=== PATIENT | female | born 1985 | race Caucasian/White ===

== ENCOUNTER 2019-01-11 18:39 | Emergency (ER) | payer BC ==
[2019-01-11] MEDS ORDERED: Lactated Ringers 1000 ML Bag* 1,000 ML IV ONE (21:00)
[2019-01-11 21:12] LABS: Urine Appearance Cloudy; Urine Bilirubin Negative (Negative); Urine Blood Negative (Negative); Urine Color Colorless; Urine Glucose Negative (Negative); Urine Ketones Negative (Negative); Urine Nitrite Negative (Negative); Urine Protein Negative (Negative); Urine Specific Gravity 1.002 (1.010-1.030); Urine Urobilinogen Negative (Negative)
[2019-01-11 21:17] LABS: ABS Basophils 0 10^3/ul (0-0.2); ABS Eosinophils 0.2 10^3/ul (0-0.6); ABS Lymphocytes 3.8 10^3/ul (1.0-4.8); ABS Monocytes 1.2 10^3/ul (0-0.8); ABS Neutrophils 8.7 10^3/ul (1.5-7.7); ABS Nucleated RBC 0 10^3/ul; Eosinophil % 1.5 %; Hematocrit 40 % (35-47); Hemoglobin 13.6 g/dl (12.0-16.0); Lymphocyte % 27.1 %; Mean Corpuscular HGB Conc 34 g/dl (31-36); Mean Corpuscular Hemoglobin 31 pg (27-31); Mean Corpuscular Volume 91 fL (80-97); Mean Platelet Volume 7.7 fL (7.4-10.4); Nucleated Red Blood Cells % 0.1; Platelet Count 314 10^3/ul (150-450); Red Blood Count 4.35 10^6/ul (4.00-5.40); Red Cell Distribution Width 13 % (10.5-15); White Blood Count 14.1 10^3/ul (3.5-10.8)
[2019-01-11 21:33] LABS: Albumin 3.6 g/dL (3.2-5.2); Albumin/Globulin Ratio 1.3 (1-3); BUN/Creatinine Ratio 15.9 (8-20); C Reactive Protein 13.44 mg/L (<8.01); Calcium 9.1 mg/dL (8.6-10.3); EGFR African American 117.8 (>60); EGFR Non-African American 97.4 (>60); Globulin 2.8 g/dL (2-4); Potassium 4.2 mmol/L (3.5-5.0); Total Bilirubin 0.2 mg/dL (0.2-1.0); Total Protein 6.4 g/dL (6.4-8.9)
--- NOTE | 2019-01-11 21:46 | ED ---
Abdominal Pain/Female - HPI Summary HPI Summary: This patient is a 33 year old F presenting to [facility] with a chief complaint of upper abd pain since 14:30. The patient notes that she is 12 weeks . Patient reports that she was diagnosed with a kidney infection with her last . The patient rates the pain 6/10 in severity. Symptoms aggravated by nothing. Symptoms alleviated by nothing. Patient reports nausea and cough. Patient denies urinary symptoms. Patient notes that she had a sinus infection a few weeks ago. - History of Current Complaint Chief Complaint: EDAbdPain Stated Complaint: 12 WEEKS /ABD PAIN Time Seen by Provider: 01/11/19 20:25 Hx Obtained From: Patient Hx Last Menstrual Period: 08/15/14 ?: Yes Onset/Duration: Gradual Onset, Lasting Hours Timing: Constant Severity Initially: Moderate Severity Currently: Moderate Pain Intensity: 6 Pain Scale Used: 0-10 Numeric Location: Discrete At: RUQ, Discrete At: LUQ Radiates: No Aggravating Factor(s): Nothing Alleviating Factor(s): Nothing Associated Signs and Symptoms: Positive: Nausea. Negative: Urinary Symptoms Allergies/Adverse Reactions: Allergies Allergy/AdvReac Type Severity Reaction Status Date / Time No Known Allergies Allergy Verified 02/29/16 07:12 Home Medications: Home Medications Levothyroxine TAB* [Synthroid TAB*] 25 mcg PO DAILY 01/11/19 [History Confirmed 01/11/19] Progesterone SUPP (NF) [Endometrin SUPP (NF)] 100 mg VAGINAL TID 01/11/19 [ History Confirmed 01/11/19] PMH/Surg Hx/FS Hx/Imm Hx Endocrine/Hematology History: Denies: Hx Diabetes, Hx Thyroid Disease Cardiovascular History: Denies: Hx Hypertension Respiratory History: Denies: Hx Asthma, Hx Chronic Obstructive Pulmonary Disease (COPD) GI History: Denies: Hx Ulcer History: Reports: Hx Kidney Infection - stents placed this Musculoskeletal History: Reports: Other Musculoskeletal History - BULGING BACK NECK AREA Sensory History: Reports: Hx Contacts or Glasses - INSTRUCTS GIVEN Denies: Hx Hearing Aid Opthamlomology History: Reports: Hx Contacts or Glasses - INSTRUCTS GIVEN - Surgical History Surgery Procedure, Year, and Place: HPV - LEEP procedure. wisdom teeth extraction Hx Anesthesia Reactions: No Infectious Disease History: No Infectious Disease History: Denies: Hx Clostridium Difficile, Hx Hepatitis, Hx Human Immunodeficiency Virus (HIV), Hx of Known/Suspected MRSA, Hx Shingles, Hx Tuberculosis, Traveled Outside the [place] in Last 30 Days - Family History Known Family History: Negative: Diabetes - Social History Alcohol Use: None Substance Use Type: Reports: None Smoking Status (MU): Never Smoked Tobacco Have You Smoked in the Last Year: No Review of Systems Negative: Fever Negative: Epistaxis Negative: Cough Positive: Abdominal Pain, Nausea Negative: dysuria All Other Systems Reviewed And Are Negative: Yes Physical Exam - Summary Physical Exam Summary: VITAL SIGNS: Reviewed. GENERAL: Patient is a well-developed and nourished FEMALE who is lying comfortable in the stretcher. Patient is not in any acute respiratory distress. HEAD AND FACE: No signs of trauma. No ecchymosis, hematomas or skull depressions. No sinus tenderness. EYES: PERRLA, EOMI x 2, No injected conjunctiva, no nystagmus. EARS: Hearing grossly intact. Ear canals and tympanic membranes are within normal limits. MOUTH: Oropharynx within normal limits. NECK: Supple, trachea is midline, no adenopathy, no JVD, no carotid bruit, no c- spine tenderness, neck with full ROM. CHEST: Symmetric, no tenderness at palpation LUNGS: Clear to auscultation bilaterally. No wheezing or crackles. CVS: Regular rate and rhythm, S1 and S2 present, no murmurs or gallops appreciated. ABDOMEN: Soft, RUQ tenderness. No signs of distention. No rebound no guarding, and no masses palpated. Bowel sounds are normal. EXTREMITIES: FROM in all major joints, no edema, no cyanosis or clubbing. NEURO: Alert and oriented x 3. No acute neurological deficits. Speech is normal and follows commands. SKIN: Dry and warm Triage Information Reviewed: Yes Vital Signs On Initial Exam: Initial Vitals Temp Pulse Resp BP Pulse Ox 98.6 F 82 18 103/79 97 01/11/19 18:43 01/11/19 18:43 01/11/19 18:43 01/11/19 18:43 01/11/19 18:43 Vital Signs Reviewed: Yes Diagnostics - Vital Signs Vital Signs Temp Pulse Resp BP Pulse Ox 01/11/19 18:43 98.6 F 82 18 103/79 97 - Laboratory Lab Results: Lab Results 01/11/19 01/11/19 01/11/19 Range/Units 21:04 21:10 21:10 WBC 14.1 H (3.5-10.8) 10^3/ul RBC 4.35 (4.00-5.40) 10^6/ul Hgb 13.6 (12.0-16.0) g/dl Hct 40 (35-47) % MCV 91 (80-97) fL MCH 31 (27-31) pg MCHC 34 (31-36) g/dl RDW 13 (10.5-15) % Plt Count 314 (150-450) 10^3/ul MPV 7.7 (7.4-10.4) fL Neut % (Auto) 62.3 % Lymph % (Auto) 27.1 % [place] % (Auto) 8.8 % Eos % (Auto) 1.5 % Baso % (Auto) 0.3 % Absolute Neuts (auto) 8.7 H (1.5-7.7) 10^3/ul Absolute Lymphs (auto) 3.8 (1.0-4.8) 10^3/ul Absolute Monos (auto) 1.2 H (0-0.8) 10^3/ul Absolute Eos (auto) 0.2 (0-0.6) 10^3/ul Absolute Basos (auto) 0 (0-0.2) 10^3/ul Absolute Nucleated RBC 0 10^3/ul Nucleated RBC % 0.1 Sodium 136 (135-145) mmol/L Potassium 4.2 (3.5-5.0) mmol/L Chloride 105 (101-111) mmol/L Carbon Dioxide 24 (22-32) mmol/L Anion Gap 7 (2-11) mmol/L BUN 11 (6-24) mg/dL Creatinine 0.69 (0.51-0.95) mg/dL Est GFR ( Amer) 117.8 (>60) Est GFR (Non-Af Amer) 97.4 (>60) BUN/Creatinine Ratio 15.9 (8-20) Glucose 99 (70-100) mg/dL Calcium 9.1 (8.6-10.3) mg/dL Total Bilirubin 0.20 (0.2-1.0) mg/dL AST 14 (13-39) U/L ALT 14 (7-52) U/L Alkaline Phosphatase 46 (34-104) U/L C-Reactive Protein 13.44 H (<8.01) mg/L Total Protein 6.4 (6.4-8.9) g/dL Albumin 3.6 (3.2-5.2) g/dL Globulin 2.8 (2-4) g/dL Albumin/Globulin Ratio 1.3 (1-3) Amylase 39 (29-103) U/L Lipase 90 H (11.0-82.0) U/L Urine Color Colorless Urine Appearance Cloudy Urine pH 7.0 (5-9) Ur Specific [place] 1.002 L (1.010-1.030) Urine Protein Negative (Negative) Urine Ketones Negative (Negative) Urine Blood Negative (Negative) Urine Nitrate Negative (Negative) Urine Bilirubin Negative (Negative) Urine Urobilinogen Negative (Negative) Ur Leukocyte Esterase Negative (Negative) Urine Glucose Negative (Negative) Result Diagrams: 01/11/19 21:10 01/11/19 21:10 Lab Statement: Any lab studies that have been ordered have been reviewed, and results considered in the medical decision making process. - Additional Comments Diagnostic Additional Comments: US Abdomen: Interpreted by radiologist IMPRESSION: Normal right upper quadrant ultrasound. No gallstones or hydronephrosis. Dr. Call has reviewed this report. Abdominal Pain Fem Course/Dx - Course Course Of Treatment: This patient is a 33 year old F presenting to [facility] with a chief complaint of RUQ abd pain and nausea since 14:30. The patient notes that she is 12 weeks . US Abdomen reveals, per radiologist, Normal right upper quadrant ultrasound.No gallstones or hydronephrosis. ED physician has reviewed this radiology report. Test results with no significant abnormalities. In the ED course the patient was given lactated ringers. Patient will be discharged home with follow up from PCP. Dx epigastric pain. The patient is agreeable with this plan. - Diagnoses Provider Diagnoses: Epigastric pain Discharge - Sign-Out/Discharge Documenting (check all that apply): Patient Departure - discharge home Patient Received Moderate/Deep Sedation with Procedure: No - Discharge Plan Condition: Stable Disposition: HOME Patient Education Materials: Epigastric Pain (ED) Referrals: Yennifer Alexandra MD [Primary Care Provider] - Additional Instructions: Follow up with primary care physician in 1-2 days. Return to the emergency department with any new or worsening symptoms. - Attestation Statements Document Initiated by Scribe: Yes Documenting Scribe: Nikki Gray Provider For Whom Scribe is Documenting (Include Credential): Heather Call MD Scribe Attestation: Nikki Alvarado, scribed for Heather Call MD on 01/11/19 at 2316. Status of Scribe Document: Ready
[2019-01-11 23:44] VITALS: BP 107/60
== END 2019-01-11 23:43 | disposition home or self-care (01) ==
LOC: ED 18:39
DX: O26.891 Other specified pregnancy related conditions, first trimester (principal); R10.13 Epigastric pain; R11.0 Nausea; R05 Cough; Z3A.12 12 weeks gestation of pregnancy
CPT/HCPCS: 36415; 76705; 80053; 81003; 82150; 83690; 85025; 86140; 96360; 99283

== ENCOUNTER 2019-02-15 09:00 | Emergency (ER) | payer BC ==
--- NOTE | 2019-02-15 09:10 | UC ---
Throat Pain/Nasal Joey HPI - HPI Summary HPI Summary: Patient is a 34 year old woman, currently 17 weeks ( s/p IUI at [facility]) who present today to the urgent care with sore throat. She reports that she noticed sinus-like congestion and symptoms starting morning and by Saturday night she was having chills and body aches along with sore throat. The have cough with mild productive sputum. No postnasal drip or headaches/sinus pressure. Her daughter was tested positive for flu on 02/13/19. She denies any fever so far. No chest pain or shortness of breath Denies any abdominal pain , nausea or vomiting , diarrhea or constipation. - History of Current Complaint Stated Complaint: CHILLS SINUS ISSUE SORE THROAT COUGH Time Seen by Provider: 02/15/19 09:02 Hx Obtained From: Patient Hx Last Menstrual Period: 08/15/14 ?: Yes - 17 weeks - Allergies/Home Medications Allergies/Adverse Reactions: Allergies Allergy/AdvReac Type Severity Reaction Status Date / Time azithromycin Allergy Intermediate Diarrhea Verified 02/15/19 09:17 Home Medications: Home Medications Cholecalciferol TAB* [Vitamin D TAB*] 1,000 units PO 02/15/19 [History] [place]-3 Fatty Acids (Nf) [Fish Oil (NF)] 1,000 mg PO Q72HR 02/15/19 [History Confirmed 02/15/19] Pnv No.95/Ferrous Fum/Folic AC [ Caplet] 1 tab PO 02/15/19 [History] Vitamin B Complex [Super B-50 Complex] 1 cap PO 02/15/19 [History] Zinc 50 mg PO 02/15/19 [History] PMH/Surg Hx/FS Hx/Imm Hx - Additional Past Medical History Additional PMH: Gestational diabetes mellitus Hypothyroidism, on levothyroxine Previously Healthy: Yes - Surgical History Surgical History: Yes Surgery Procedure, Year, and Place: HPV - LEEP procedure. wisdom teeth extraction - Family History Known Family History: Negative: Diabetes - Social History Alcohol Use: None Substance Use Type: None Smoking Status (MU): Never Smoked Tobacco Have You Smoked in the Last Year: No - Immunization History Most Recent Influenza Vaccination: unknown Most Recent Tetanus Shot: unknown Most Recent Pneumonia Vaccination: never Review of Systems All Other Systems Reviewed And Are Negative: Yes Constitutional: Positive: Chills Skin: Positive: Negative Eyes: Positive: Negative ENT: Positive: Sore Throat, Sinus Congestion Respiratory: Positive: Cough - Productive Cardiovascular: Positive: Negative Gastrointestinal: Positive: Negative Genitourinary: Positive: Negative Motor: Positive: Negative Neurovascular: Positive: Negative Musculoskeletal: Positive: Negative Neurological: Positive: Negative Psychological: Positive: Negative Is Patient Immunocompromised?: No Physical Exam - Summary Physical Exam Summary: Physical Exam: Const: Appears well. No signs of apparent distress present. Alert and oriented x 3. Musculo: Walks with a normal gait. Head/Face: Atraumatic, normocephalic on inspection. Eyes: EOMI and PERRLA in both eyes. Conjunctivae clear. No discharge noted ENT: Hearing normal, TM normal appearing bilaterally, non bulging , non erythematous No tenderness to palpation on maxillary and frontal sinus. Mild pharyngeal erythema without any exudates . Uvula is midline. Slightly tender bilateral anterior cervical lymphadenopathy noted. Respiratory: Respirations are unlabored. Lungs clear to auscultation bilaterally, no wheezing , rhonchi or rales noted . CVS: Regular rate and Rhythm, S1S2 normal , no murmurs identified. Extremities: Peripheral circulation is grossly normal. Pulses 2+ Abdomen : Soft non tender , nondistended , Bowel sounds present . No guarding , rebound tenderness or rigidity noted. Skin: No lesions or rash located on the upper extremities or on the lower extremities. Neuro: Cranial nerves II to XII intact, motor and sensory intact. DTR Intact bilaterally. Mood is normal. Affect is normal. Triage Information Reviewed: Yes Vital Signs Reviewed: Yes Throat Pain/Nasal Course/Dx - Course Course Of Treatment: During the visit today, we obtained a rapid flu test and rapid strep test, tested positive for flu. We discussed the findings and further plan. I called her on-call [facility] to discuss further plan in regards to Tamiflu as her symptoms started morning but she did have chills and bodyaches is starting Saturday and spoke to Dr. Naylor. She recommends that we start her on Tamiflu as it reduces complications and expedite recovery. l prescribed the medication to the pharmacy . Patient expressed understanding . - Differential Dx/Diagnosis Provider Diagnosis: Influenza A Discharge - Sign-Out/Discharge Documenting (check all that apply): Patient Departure All imaging exams completed and their final reports reviewed: No Studies - Discharge Plan Condition: Stable Disposition: HOME Prescriptions: Oseltamivir SUSP 75 MG dose* [Tamiflu SUSP 75 MG dose*] 75 mg PO BID 5 Days #10 oral.syrin Patient Education Materials: Influenza (DC) Forms: *Work Release Referrals: Yennifer Alexandra MD [Primary Care Provider] - 2 Days Additional Instructions: Please start taking the medication as prescribed to the pharmacy . Tylenol as needed for fever Keep yourself hydrated Follow up with your primary care doctor in 2-3 days and your [facility] as scheduled Return to Urgent care / ER if symptoms get worse. - Billing Disposition and Condition Condition: STABLE Disposition: Home
[2019-02-15 09:17] VITALS: BP 107/57
[2019-02-15 09:37] LABS: Influenza A Molecular POSITIVE (Negative)
== END 2019-02-15 10:16 | disposition home or self-care (01) ==
LOC: UCEAST 09:00
DX: O99.512 Diseases of the respiratory system complicating pregnancy, second trimester (principal); J10.1 Influenza due to other identified influenza virus with other respiratory manifestations; O24.419 Gestational diabetes mellitus in pregnancy, unspecified control; Z88.1 Allergy status to other antibiotic agents; Z3A.17 17 weeks gestation of pregnancy
CPT/HCPCS: 87651; 99212; G0463

== ENCOUNTER 2021-07-07 04:33 | Inpatient (IN) ==
[2021-07-07] MEDS ORDERED: Lactated Ringers 1000 ml BAG 1,000 ML IV ONE ×2 (05:04→06:15)
[2021-07-07] MEDS ORDERED: Buffered Lidocaine 1% SYRIN 1 ml INTRADERM ONE (05:04)
[2021-07-07] MEDS ORDERED: Sodium Phosphate ADULT ENEMA 133 ML BTL PR ONE (05:22)
[2021-07-07 05:23] LABS: ABS Basophils 0.1 10^3/ul (0-0.2); ABS Eosinophils 0.1 10^3/ul (0-0.6); ABS Lymphocytes 3.3 10^3/ul (1.0-4.8); ABS Monocytes 1.3 10^3/ul (0-0.8); ABS Neutrophils 12.1 10^3/ul (1.5-7.7); Eosinophil % 0.8 %; Hematocrit 41 % (35-47); Hemoglobin 14.3 g/dL (12.0-16.0); Lymphocyte % 19.7 %; Mean Corpuscular HGB Conc 35 g/dL (31-36); Mean Corpuscular Hemoglobin 31 pg (27-31); Mean Corpuscular Volume 89 fL (80-97); Mean Platelet Volume 8.4 fL (7.4-10.4); Platelet Count 277 10^3/uL (150-450); Red Blood Count 4.63 10^6 /uL (3.70-4.87); Red Cell Distribution Width 14 % (10-15)
[2021-07-07] MEDS ORDERED: OBEPIDURAL 250 ML EPIDURAL ONE (05:30)
[2021-07-07] MEDS ORDERED: Oxytocin in LR 20 UNITS/1,000 ML BAG IVPB ONE (05:47)
[2021-07-07] MEDS ORDERED: Lactated Ringers 1000 ml BAG 1,000 ML IV SCH ×4 (06:00→08:00)
[2021-07-07] MEDS ORDERED: EPHEDrine (Pressors) 50 MG/ML VIAL IV PUSH PRN ×2 (06:15)
[2021-07-07] MEDS ORDERED: Lactated Ringers 1000 ml BAG 500 ML IV PRN (06:15)
[2021-07-07] MEDS ORDERED: Sodium Citrate/Citric Acid LIQ 15 ML UDC PO PRN (06:15)
[2021-07-07] MEDS ORDERED: Phenylephrine 40 mcg/mL 10mL (400mcg) SYRINGE IV PUSH PRN ×2 (06:15)
[2021-07-07] MEDS ORDERED: OBEPIDURAL 250 ML EPIDURAL SCH (07:00)
[2021-07-07] MEDS ORDERED: Glycerin ADULT 2.4 gm SUPP PR PRN (07:30)
[2021-07-07] MEDS ORDERED: RHO D Immune Globulin (HUMAN) 300 MCG = 1,500 I.U. INJ IM ONE (07:32)
[2021-07-07] MEDS ORDERED: Oxytocin in LR 20 UNITS/1,000 ML BAG IVPB SCH (08:00)
[2021-07-07] MEDS ORDERED: Lidocaine 1% VIAL 10 MG/ML VIAL ONE (08:41)
[2021-07-07] MEDS: Witch Hazel PAD JAR TOPICAL PRN (14:15)
[2021-07-07] MEDS: Dibucaine 1% OINT 28.35 GM TUBE PR PRN (14:17)
[2021-07-08 08:25] VITALS: BP 107/65
[2021-07-08 09:36] LABS: ABS Basophils 0.1 10^3/ul (0-0.2); ABS Eosinophils 0.1 10^3/ul (0-0.6); ABS Lymphocytes 2.6 10^3/ul (1.0-4.8); ABS Monocytes 1.2 10^3/ul (0-0.8); ABS Neutrophils 12.8 10^3/ul (1.5-7.7); Eosinophil % 0.8 %; Hematocrit 39 % (35-47); Hemoglobin 13.3 g/dL (12.0-16.0); Lymphocyte % 15.3 %; Mean Corpuscular HGB Conc 34 g/dL (31-36); Mean Corpuscular Hemoglobin 30 pg (27-31); Mean Corpuscular Volume 90 fL (80-97); Mean Platelet Volume 8.2 fL (7.4-10.4); Platelet Count 256 10^3/uL (150-450); Red Blood Count 4.37 10^6 /uL (3.70-4.87); Red Cell Distribution Width 14 % (10-15); White Blood Count 16.8 10^3/uL (3.5-10.8)
[2021-07-08] MEDS ORDERED: RHO D Immune Globulin (HUMAN) 300 MCG = 1,500 I.U. INJ IM ONE (14:07)
[2021-07-08] MEDS: Witch Hazel PAD JAR TOPICAL PRN (14:49)
[2021-07-08] MEDS: Dibucaine 1% OINT 28.35 GM TUBE PR PRN (14:49)
== END 2021-07-08 14:53 | disposition home or self-care (01) | DRG 560 ==
LOC: MCHOBOUT 04:33 → MCHOB 05:00
PROVIDERS: ADMIT Obstetrics & Gynecology; ATTEND Obstetrics & Gynecology

== ENCOUNTER 2024-03-13 10:07 | Inpatient (IN) ==
[~2024-03-13 10:07] MED LIST: Lidocaine 1% VIAL 10 MG/ML 30 ML VIAL INJ PRN
[2024-03-13 12:14] LABS: Urine Appearance Clear; Urine Bilirubin Negative (Negative); Urine Blood Negative (Negative); Urine Color Yellow; Urine Glucose Negative (Negative); Urine Ketones Negative (Negative); Urine Nitrite Negative (Negative); Urine Protein Negative (Negative); Urine Specific Gravity 1.008 (1.002-1.030); Urine Urobilinogen Negative (Negative)
[2024-03-13 12:30] LABS: Influenza A Molecular Negative (Negative); Influenza B Molecular Negative (Negative)
[2024-03-13 12:46] LABS: ABS Eosinophils 0.1 10^3/uL (0.0-0.5); ABS Monocytes 1.1 10^3/uL (0.0-0.9); ABS Neutrophils 8.4 10^3/uL (1.5-7.6); ABS Nucleated RBC 0.02 10^3/ul; Eosinophil % 0.9 %; Hematocrit 40.1 % (35-45); Hemoglobin 13.7 g/dL (11.5-14.3); Lymphocyte % 16.8 %; Mean Corpuscular Hemoglobin 30.6 pg (27-33); Mean Corpuscular Hgb Conc 34.2 g/dL (31-36); Mean Corpuscular Volume 89.6 fL (80-97); Mean Platelet Volume 8.7 fL (7.5-11.2); Nucleated Red Blood Cells % 0.2 %/100WBC (0.0-0.8); Platelet Count 264 10^3/uL (150-450); Red Blood Count 4.48 10^6/uL (3.63-4.92); White Blood Count 11.6 10^3/uL (3.8-11.8)
[2024-03-13] MEDS: Lactated Ringers 1000 ml BAG 1,000 ML IV ONE (13:29)
[2024-03-13] MEDS: Oxytocin in LR 20,000 MILLI.UNIT/1,000 ML BAG IV SCH ×2 (14:03→21:05)
[2024-03-13] MEDS: Lactated Ringers 1000 ml BAG 1,000 ML IV SCH (18:20)
[2024-03-13] MEDS ORDERED: Lidocaine 1.5% EPI 1:200,000 30 ML SDV ONE ×2 (18:24→18:28)
[2024-03-13] MEDS ORDERED: OBEPIDURAL (200 ML) 200 ML EPIDURAL ONE (18:24)
[2024-03-13] MEDS: OBEPIDURAL (200 ML) 200 ML EPIDURAL SCH (18:55)
[2024-03-13] MEDS ORDERED: Lactated Ringers 1000 ml BAG 1,000 ML IV ONE (19:15)
[2024-03-13] MEDS ORDERED: Sodium Citrate/Citric Acid LIQ 15 ML UDC PO PRN (19:15)
[2024-03-13] MEDS ORDERED: Phenylephrine 40 mcg/mL 10mL (400mcg) SYRINGE IV PUSH PRN ×2 (19:15)
[2024-03-13] MEDS ORDERED: Lactated Ringers 1000 ml BAG 1,000 ML IV SCH ×2 (20:00→22:00)
[2024-03-13] MEDS ORDERED: Glycerin ADULT 2.4 gm SUPP PR PRN (21:38)
[2024-03-13] MEDS ORDERED: RHO D Immune Globulin (HUMAN) 300 MCG = 1,500 I.U. INJ IM PRN (21:38)
[2024-03-13] MEDS: Dibucaine 1% OINT 28.35 GM TUBE PR PRN (22:59)
[2024-03-13] MEDS: Witch Hazel PAD JAR TOPICAL PRN (22:59)
[2024-03-14 06:43] LABS: ABS Basophils 0.2 10^3/uL (0.0-0.1); ABS Eosinophils 0.2 10^3/uL (0.0-0.5); ABS Lymphocytes 2.5 10^3/uL (1.0-4.8); ABS Monocytes 1.3 10^3/uL (0.0-0.9); ABS Neutrophils 11.8 10^3/uL (1.5-7.6); ABS Nucleated RBC 0.01 10^3/ul; Hematocrit 36.3 % (35-45); Hemoglobin 12.5 g/dL (11.5-14.3); Lymphocyte % 15.5 %; Mean Corpuscular Hemoglobin 30.6 pg (27-33); Mean Corpuscular Hgb Conc 34.4 g/dL (31-36); Mean Corpuscular Volume 89.1 fL (80-97); Mean Platelet Volume 8.1 fL (7.5-11.2); Platelet Count 216 10^3/uL (150-450); Red Blood Count 4.08 10^6/uL (3.63-4.92); Red Cell Distribution Width 14.2 % (12-17)
[2024-03-14] MEDS: Buffered Lidocaine 1% SYRIN 1 ml INTRADERM ONE (16:05)
[2024-03-14 20:32] VITALS: BP 115/61
== END 2024-03-14 22:40 | disposition home or self-care (01) | DRG 560 ==
LOC: MCHOBOUT 10:07 → MCHOB 11:01 → UNDODISIN 03-14 22:40
PROVIDERS: ADMIT Obstetrics & Gynecology; ATTEND Obstetrics & Gynecology